=== PATIENT | female | born 1955 | race Caucasian/White ===

== ENCOUNTER 2022-02-11 02:06 | Inpatient (IN) ==
[2022-02-11] MEDS ORDERED: Naloxone 0.4 MG/ML INJ IVP PRN (06:51)
[2022-02-11] MEDS ORDERED: *HR* Heparin 5,000 UNIT/ML VIAL IVP ONE (08:52)
[2022-02-11] MEDS ORDERED: *HR* Heparin 5,000 UNIT/ML VIAL IVP PRN ×2 (08:52)
[2022-02-11] MEDS ORDERED: Perflutren Lipid Microsphere 1.3 ML in 0.9 % Sodium Chloride 8.7 ML IVP PRN (08:55)
[2022-02-11] MEDS ORDERED: Morphine Sulfate 2 MG/ML SYRINGE IVP STA (09:05)
[2022-02-11] MEDS ORDERED: Morphine Sulfate 2 MG/ML SYRINGE IVP PRN (09:09)
[2022-02-11] MEDS: Ondansetron 4 MG/2 ML VIAL IVP PRN ×2 (09:23→19:05)
[2022-02-11 09:31] LABS: Basophils # 0.1 K/mcL (0.0-0.2); Basophils % 0.7 %; Eosinophils # 0.1 K/mcL (0.0-0.6); Eosinophils % 1.1 %; Hemoglobin 8.2 g/dL (11.5-15.4); Immature Granulocytes % 0.5 % (0-4); Lymphocytes # 2.3 K/mcL (0.6-4.6); Lymphocytes % 18.8 %; Mean Corpuscular HGB Conc 30.4 g/dL (31.6-35.5); Mean Corpuscular Hemoglobin 24.9 pg (28.0-33.3); Mean Corpuscular Volume 82.1 fL (83.0-100.0); Mean Platelet Volume 11.2 fL (9.4-12.4); Monocytes # 0.6 K/mcL (0.0-1.3); Monocytes % 4.8 %; Neutrophils # 8.9 K/mcL (1.6-8.9); Platelet Count 167 K/mcL (140-400); Red Blood Count 3.29 M/mcL (3.82-4.97); Red Cell Distribution Width 16.8 % (11.5-14.5); Segmented Neutrophils % 74.1 %
[2022-02-11] MEDS: Aspirin 81 MG TAB.CHEW PO SCH (09:41)
[2022-02-11] MEDS: Furosemide 40 MG/4 ML VIAL IVP SCH ×2 (09:41→18:20)
[2022-02-11] MEDS: Heparin 25,000UNIT/250ML 1/2NS 25,000 UNIT/250 ML IV.SOLN IVC SCH (09:42)
[2022-02-11 09:44] LABS: Prothrombin Time 11.6 Seconds (9.4-12.1)
[2022-02-11 09:48] LABS: BUN/Creatinine Ratio 18 (6-26); Blood Urea Nitrogen 9 mg/dL (8-23); Calcium 8.4 mg/dL (8.6-10.3); Carbon Dioxide 29 mEq/L (23-29); Chloride 101 mEq/L (98-107); Glucose 298 mg/dL (70-105); Osmolality,Calculated 296 (280-300); Potassium 3.3 mEq/L (3.5-5.1); Sodium 138 mEq/L (136-145); eGFR For African Americans > 60 (> 60); eGFR For Non-African Americans > 60 (> 60)
[2022-02-11 09:51] LABS: Albumin 3.5 g/dL (3.5-5.7); Albumin/Globulin Ratio 1.7 (1.1-2.2); Bilirubin,Direct 0.1 mg/dL (0.0-0.2); Bilirubin,Indirect 0.2 mg/dL (0.0-1.0); Bilirubin,Total 0.3 mg/dL (0.3-1.0); Globulin 2.1 g/dL (2.4-3.5); Magnesium 1.6 mg/dL (1.6-2.6); Total Protein 5.6 g/dL (6.4-8.9)
[2022-02-11 09:56] LABS: Estimated Average Glucose 214 mg/dl; Hemoglobin A1C 9.1 %
[2022-02-11 10:03] LABS: Thyroid Stimulating Hormone 2.635 mcIU/mL (0.340-5.600)
[2022-02-11 11:17] LABS: Bilirubin,Urine Negative (Negative); Blood,Urine Negative (Negative); Clarity,Urine Clear (Clear); Color,Urine Colorless (Yellow); Glucose,Urine (UA) >=1000 mg/dL (Normal); Ketones,Urine Trace mg/dL (Negative); Leukocyte Esterase,Urine Negative (Negative); Nitrite,Urine Negative (Negative); Protein,Urine Negative (Neg-Trace); RBC,Urine 0-3 per hpf (0-3); Specific Gravity,Urine 1.012 (1.010-1.025); Urobilinogen,Urine Normal (Normal); WBC,Urine 0-3 per hpf (0-3)
[2022-02-11] MEDS ORDERED: *HR* Ticagrelor 90 MG TABLET PO ONE (18:22)
[2022-02-11] MEDS: Morphine Sulfate 2 MG/ML SYRINGE IVP PRN (19:14)
[2022-02-11] MEDS ORDERED: D5% in Water 1,000 ML IVC PRN (20:39)
[2022-02-11] MEDS ORDERED: *HR* Dextrose 50 % in Water (Syg) 50 ML SYRINGE IVP PRN (20:39)
[2022-02-11] MEDS ORDERED: Dextrose 4 GM Chewable Tablets PO PRN ×2 (20:39)
[2022-02-11] MEDS: Insulin LISPRO 300 UNITS/3 ML VIAL SUBQ SCH (21:08)
[2022-02-11] MEDS: Acetaminophen 325 MG TABLET PO PRN (21:45)
[2022-02-11] MEDS: ALPRAZolam 1 MG TABLET PO PRN (23:31)
[2022-02-12] MEDS ORDERED: Insulin LISPRO 300 UNITS/3 ML VIAL SUBQ SCH
[2022-02-12] MEDS: Insulin LISPRO 300 UNITS/3 ML VIAL SUBQ SCH ×3 (00:06→12:31)
[2022-02-12 02:35] LABS: Basophils # 0.1 K/mcL (0.0-0.2); Basophils % 0.5 %; Eosinophils # 0.2 K/mcL (0.0-0.6); Eosinophils % 1.8 %; Hematocrit 26.7 % (35.3-44.9); Hemoglobin 8.3 g/dL (11.5-15.4); Immature Granulocytes % 0.5 % (0-4); Lymphocytes # 3.7 K/mcL (0.6-4.6); Lymphocytes % 32.1 %; Mean Corpuscular HGB Conc 31.1 g/dL (31.6-35.5); Mean Corpuscular Hemoglobin 24.8 pg (28.0-33.3); Mean Corpuscular Volume 79.7 fL (83.0-100.0); Mean Platelet Volume 11.3 fL (9.4-12.4); Monocytes # 0.7 K/mcL (0.0-1.3); Monocytes % 5.7 %; Neutrophils # 6.9 K/mcL (1.6-8.9); Platelet Count 229 K/mcL (140-400); Red Blood Count 3.35 M/mcL (3.82-4.97); Red Cell Distribution Width 16.6 % (11.5-14.5); Segmented Neutrophils % 59.4 %; White Blood Count 11.6 K/mcL (4.3-11.1)
[2022-02-12 02:53] LABS: BUN/Creatinine Ratio 15 (6-26); Blood Urea Nitrogen 8 mg/dL (8-23); Calcium 8.4 mg/dL (8.6-10.3); Carbon Dioxide 32 mEq/L (23-29); Chloride 94 mEq/L (98-107); Glucose 200 mg/dL (70-105); Osmolality,Calculated 284 (280-300); Potassium 2.9 mEq/L (3.5-5.1); Sodium 135 mEq/L (136-145); eGFR For African Americans > 60 (> 60); eGFR For Non-African Americans > 60 (> 60)
[2022-02-12] MEDS: Morphine Sulfate 2 MG/ML SYRINGE IVP PRN (03:30)
[2022-02-12] MEDS: Melatonin 3 MG TABLET PO PRN ×2 (03:35→21:11)
[2022-02-12] MEDS: Ondansetron 4 MG/2 ML VIAL IVP PRN (08:25)
[2022-02-12 09:15] LABS: BUN/Creatinine Ratio 17 (6-26); Blood Urea Nitrogen 10 mg/dL (8-23); Calcium 8.5 mg/dL (8.6-10.3); Carbon Dioxide 33 mEq/L (23-29); Chloride 95 mEq/L (98-107); Glucose 199 mg/dL (70-105); Magnesium 1.5 mg/dL (1.6-2.6); Osmolality,Calculated 285 (280-300); Potassium 3.5 mEq/L (3.5-5.1); Sodium 135 mEq/L (136-145); eGFR For African Americans > 60 (> 60); eGFR For Non-African Americans > 60 (> 60)
[2022-02-12] MEDS: *HR* Ticagrelor 90 MG TABLET PO SCH ×3 (11:06→21:11)
[2022-02-12] MEDS: Aspirin 81 MG TAB.CHEW PO SCH (11:07)
[2022-02-12] MEDS: Furosemide 40 MG/4 ML VIAL IVP SCH (11:19)
[2022-02-12] MEDS: Heparin 25,000UNIT/250ML 1/2NS 25,000 UNIT/250 ML IV.SOLN IVC SCH (12:18)
[2022-02-12 14:19] LABS: BUN/Creatinine Ratio 19 (6-26); Blood Urea Nitrogen 11 mg/dL (8-23); Calcium 8.5 mg/dL (8.6-10.3); Carbon Dioxide 31 mEq/L (23-29); Chloride 93 mEq/L (98-107); Glucose 260 mg/dL (70-105); Osmolality,Calculated 284 (280-300); Potassium 3.5 mEq/L (3.5-5.1); Sodium 133 mEq/L (136-145); eGFR For African Americans > 60 (> 60); eGFR For Non-African Americans > 60 (> 60)
[2022-02-12] MEDS: ALPRAZolam 1 MG TABLET PO PRN ×2 (15:10→21:11)
[2022-02-12 16:10] LABS: Hematocrit 26.8 % (35.3-44.9); Hemoglobin 8.4 g/dL (11.5-15.4)
[2022-02-12 18:18] LABS: % Iron Saturation 5 % (15-50); Iron 21 mcg/dL (50-170); Transferrin 322 mg/dL (203-362)
[2022-02-12 20:26] LABS: Folate 10.1 ng/mL (3.0-16.0)
[2022-02-13] MEDS: Insulin LISPRO 300 UNITS/3 ML VIAL SUBQ SCH ×5 (01:37→18:06)
[2022-02-13 04:20] LABS: Hemoglobin 8.3 g/dL (11.5-15.4); Mean Corpuscular HGB Conc 30.7 g/dL (31.6-35.5); Mean Corpuscular Hemoglobin 25.1 pg (28.0-33.3); Mean Corpuscular Volume 81.6 fL (83.0-100.0); Mean Platelet Volume 11.7 fL (9.4-12.4); Platelet Count 237 K/mcL (140-400); Red Blood Count 3.31 M/mcL (3.82-4.97); Red Cell Distribution Width 16.6 % (11.5-14.5); White Blood Count 12.3 K/mcL (4.3-11.1)
[2022-02-13 04:41] LABS: BUN/Creatinine Ratio 20 (6-26); Blood Urea Nitrogen 13 mg/dL (8-23); Calcium 8.6 mg/dL (8.6-10.3); Carbon Dioxide 28 mEq/L (23-29); Chloride 97 mEq/L (98-107); Glucose 174 mg/dL (70-105); Magnesium 1.8 mg/dL (1.6-2.6); Osmolality,Calculated 282 (280-300); Potassium 3.8 mEq/L (3.5-5.1); Sodium 134 mEq/L (136-145); eGFR For African Americans > 60 (> 60); eGFR For Non-African Americans > 60 (> 60)
[2022-02-13] MEDS: Aspirin 81 MG TAB.CHEW PO SCH (08:47)
[2022-02-13] MEDS: *HR* Ticagrelor 90 MG TABLET PO SCH ×2 (08:48→21:22)
[2022-02-13] MEDS: Furosemide 40 MG TABLET PO SCH ×2 (08:50→18:06)
[2022-02-13] MEDS: ALPRAZolam 1 MG TABLET PO PRN ×3 (08:50→21:22)
[2022-02-13] MEDS: Pantoprazole 40 MG VIAL IVP SCH (08:50)
[2022-02-13] MEDS ORDERED: hydroCHLOROthiazide 25 MG TABLET PO SCH (09:00)
[2022-02-13] MEDS: Heparin 25,000UNIT/250ML 1/2NS 25,000 UNIT/250 ML IV.SOLN IVC SCH (10:42)
[2022-02-13] MEDS ORDERED: *HR* Heparin 10,000 UNIT/10 ML VIAL ONE (15:39)
[2022-02-13] MEDS ORDERED: *HR* FentaNYL (PF) 100 MCG/2 ML VIAL ONE (15:39)
[2022-02-13] MEDS ORDERED: *HR* Midazolam HCl 2 MG/2 ML VIAL ONE (15:39)
[2022-02-13] MEDS ORDERED: 0.9 % Sodium Chloride 1,000 ML ONE ×2 (15:39→16:09)
[2022-02-13] MEDS ORDERED: ISOVUE-370 200 ML INFUS..BTL ONE ×2 (15:39→17:10)
[2022-02-13] MEDS ORDERED: Nitroglycerin 1,000 MCG/5 ML VIAL IV ONE (15:39)
[2022-02-13] MEDS ORDERED: Heparin 1,000 UNITS/500 mL 500 ML ONE ×3 (15:39→17:38)
[2022-02-13] MEDS ORDERED: methylPREDNISolone 125 MG/2 ML VIAL ONE (16:08)
[2022-02-13] MEDS: Melatonin 3 MG TABLET PO PRN (21:22)
[2022-02-14] MEDS ORDERED: Haloperidol Lactate 5 MG/ML VIAL IM ONE (01:24)
[2022-02-14] MEDS: Insulin LISPRO 300 UNITS/3 ML VIAL SUBQ SCH ×5 (02:44→22:07)
[2022-02-14] MEDS: 0.9 % Sodium Chloride 1,000 ML IVC SCH ×2 (02:51→15:02)
[2022-02-14 03:41] LABS: Hematocrit 25.8 % (35.3-44.9); Hemoglobin 7.8 g/dL (11.5-15.4); Mean Corpuscular HGB Conc 30.2 g/dL (31.6-35.5); Mean Corpuscular Hemoglobin 24.1 pg (28.0-33.3); Mean Corpuscular Volume 79.6 fL (83.0-100.0); Mean Platelet Volume 11.6 fL (9.4-12.4); Platelet Count 225 K/mcL (140-400); Red Blood Count 3.24 M/mcL (3.82-4.97); Red Cell Distribution Width 16.5 % (11.5-14.5); White Blood Count 8.4 K/mcL (4.3-11.1)
[2022-02-14 04:02] LABS: BUN/Creatinine Ratio 20 (6-26); Blood Urea Nitrogen 19 mg/dL (8-23); Calcium 8.4 mg/dL (8.6-10.3); Carbon Dioxide 23 mEq/L (23-29); Chloride 93 mEq/L (98-107); Glucose 529 mg/dL (70-105); Magnesium 1.9 mg/dL (1.6-2.6); Osmolality,Calculated 296 (280-300); Potassium 3.8 mEq/L (3.5-5.1); Sodium 130 mEq/L (136-145); eGFR For African Americans > 60 (> 60); eGFR For Non-African Americans 60 (> 60)
[2022-02-14] MEDS: Acetaminophen 325 MG TABLET PO PRN (04:42)
[2022-02-14] MEDS: Furosemide 40 MG TABLET PO SCH (08:32)
[2022-02-14] MEDS: Loratadine 10 MG TABLET PO SCH (08:32)
[2022-02-14] MEDS: Aspirin 81 MG TAB.CHEW PO SCH (08:32)
[2022-02-14] MEDS: *HR* Ticagrelor 90 MG TABLET PO SCH (08:32)
[2022-02-14] MEDS: Cyanocobalamin (B-12) 1,000 MCG TABLET PO SCH (08:33)
[2022-02-14] MEDS: Pantoprazole 40 MG VIAL IVP SCH (08:33)
[2022-02-14] MEDS: *HR* Heparin 5,000 UNIT/ML VIAL SQ SCH ×3 (08:40→22:06)
[2022-02-14] MEDS: Nicotine 21 MG PATCH.TD24 TD SCH (09:46)
[2022-02-14] MEDS: Iron Sucrose Complex 200 MG in 0.9 % Sodium Chloride 100 ML IVPB SCH (12:59)
[2022-02-14] MEDS: ALPRAZolam 1 MG TABLET PO PRN ×2 (16:49→22:05)
[2022-02-14] MEDS ORDERED: QUEtiapine Fumarate 25 MG TABLET PO SCH (21:00)
[2022-02-14] MEDS ORDERED: Insulin DETEMIR 100 UNIT/ML X5UNITS SUBQ SCH (21:00)
[2022-02-15 06:00] LABS: Hematocrit 26.8 % (35.3-44.9); Hemoglobin 8.2 g/dL (11.5-15.4); Mean Corpuscular HGB Conc 30.6 g/dL (31.6-35.5); Mean Corpuscular Hemoglobin 25.3 pg (28.0-33.3); Mean Corpuscular Volume 82.7 fL (83.0-100.0); Mean Platelet Volume 11.6 fL (9.4-12.4); Platelet Count 257 K/mcL (140-400); Red Blood Count 3.24 M/mcL (3.82-4.97); Red Cell Distribution Width 17.2 % (11.5-14.5); White Blood Count 11.8 K/mcL (4.3-11.1)
[2022-02-15] MEDS: *HR* Heparin 5,000 UNIT/ML VIAL SQ SCH ×3 (06:09→20:24)
[2022-02-15 06:54] LABS: BUN/Creatinine Ratio 30 (6-26); Blood Urea Nitrogen 21 mg/dL (8-23); Calcium 8.4 mg/dL (8.6-10.3); Carbon Dioxide 23 mEq/L (23-29); Chloride 102 mEq/L (98-107); Glucose 236 mg/dL (70-105); Magnesium 1.9 mg/dL (1.6-2.6); Osmolality,Calculated 299 (280-300); Potassium 3.1 mEq/L (3.5-5.1); Sodium 139 mEq/L (136-145); eGFR For African Americans > 60 (> 60); eGFR For Non-African Americans > 60 (> 60)
[2022-02-15] MEDS ORDERED: Furosemide 40 MG TABLET PO SCH (09:00)
[2022-02-15] MEDS: Loratadine 10 MG TABLET PO SCH (09:21)
[2022-02-15] MEDS: Aspirin 81 MG TAB.CHEW PO SCH (09:21)
[2022-02-15] MEDS: Cyanocobalamin (B-12) 1,000 MCG TABLET PO SCH (09:21)
[2022-02-15] MEDS: ALPRAZolam 1 MG TABLET PO PRN (12:12)
[2022-02-15] MEDS: Nicotine 21 MG PATCH.TD24 TD SCH (12:15)
[2022-02-15] MEDS: Insulin LISPRO 300 UNITS/3 ML VIAL SUBQ SCH (12:16)
[2022-02-15] MEDS ORDERED: Potassium Chloride Elixir 20 MEQ/15 ML UDC GTUBE ONE (12:19)
[2022-02-15] MEDS: Iron Sucrose Complex 200 MG in 0.9 % Sodium Chloride 100 ML IVPB SCH (13:42)
[2022-02-15 15:36] VITALS: BP 102/37; PULSE 77; TEMP 97.7; O2SAT 96
== END 2022-02-15 21:15 | disposition home or self-care (01) | DRG 246 ==
LOC: 3NENU
PROVIDERS: ADMIT Student in an Organized Health Care Education/Training Program; ATTEND Student in an Organized Health Care Education/Training Program